=== PATIENT | female | born 1990 | race African-American/Black ===

== ENCOUNTER 2021-08-29 11:32 | Day surgery (SDC) | payer MEDICAID, OTHER ==
[2021-08-29 12:00] VITALS: BMI 31.9
[2021-08-29] MEDS ORDERED: hydrALAZINE 20 MG/ML VIAL SLOW IVP PRN (13:06)
== END 2021-08-29 14:42 | disposition home or self-care (01) ==
LOC: CSHLD/OP 11:32
PROVIDERS: ATTEND Family Medicine
DX: O99.891 Other specified diseases and conditions complicating pregnancy (principal); R10.30 Lower abdominal pain, unspecified; M54.50 Low back pain, unspecified; O34.211 Maternal care for low transverse scar from previous cesarean delivery; O99.513 Diseases of the respiratory system complicating pregnancy, third trimester; J45.909 Unspecified asthma, uncomplicated; Z3A.35 35 weeks gestation of pregnancy
CPT/HCPCS: 99282

== ENCOUNTER 2021-09-04 14:21 | Day surgery (SDC) | payer OTHER ==
[2021-09-04 15:00] VITALS: BMI 30.7
[2021-09-04 15:29] LABS: Fetal Membranes Rupture No Membranes Rupture (No Rupture)
[2021-09-04] MEDS ORDERED: hydrALAZINE 20 MG/ML VIAL SLOW IVP PRN (15:58)
== END 2021-09-04 16:02 | disposition home health service (06) ==
LOC: CSHLD/OP 14:21
PROVIDERS: ATTEND Family Medicine
DX: O99.891 Other specified diseases and conditions complicating pregnancy (principal); N89.8 Other specified noninflammatory disorders of vagina; O34.219 Maternal care for unspecified type scar from previous cesarean delivery; Z3A.36 36 weeks gestation of pregnancy
CPT/HCPCS: 84112; 99283

== ENCOUNTER 2021-09-19 19:51 | Day surgery (SDC) | payer OTHER ==
[2021-09-19 20:12] VITALS: BMI 32.1
[2021-09-19] MEDS ORDERED: hydrALAZINE 20 MG/ML VIAL SLOW IVP PRN (20:51)
[2021-09-19] MEDS ORDERED: Promethazine HCl 25 MG/ML VIAL IM PRN (21:01)
[2021-09-19] MEDS ORDERED: Morphine 4 MG/ML VIAL IM SCH (21:15)
== END 2021-09-19 21:34 | disposition home or self-care (01) ==
LOC: CSHLD/OP 19:51
PROVIDERS: ATTEND Family Medicine
DX: O47.1 False labor at or after 37 completed weeks of gestation (principal); O34.211 Maternal care for low transverse scar from previous cesarean delivery; Z3A.38 38 weeks gestation of pregnancy; Z79.899 Other long term (current) drug therapy
CPT/HCPCS: 96372; 99282; J2270; J2550

== ENCOUNTER 2021-09-22 08:34 | Outpatient (CLI) | payer OTHER, MEDICAID ==
[2021-09-22 19:08] LABS: SARS-CoV-2 PCR by NAA Not Detected (NotDetected)
== END 2021-09-22 08:35 | disposition home or self-care (01) ==
LOC: CSHLAB 08:34
PROVIDERS: ATTEND Family Medicine
DX: Z20.822 Contact with and (suspected) exposure to COVID-19 (principal)
CPT/HCPCS: U0003; U0005

== ENCOUNTER 2021-09-26 09:01 | Inpatient (IN) | payer MEDICAID, OTHER ==
[2021-09-26 10:25] VITALS: BMI 32.1
[2021-09-26] MEDS ORDERED: Ondansetron PF 4 MG/2 ML Vial IVP PRN ×2 (10:29→13:07)
[2021-09-26] MEDS ORDERED: hydrALAZINE 20 MG/ML VIAL SLOW IVP PRN ×2 (10:29→12:47)
[2021-09-26] MEDS ORDERED: Promethazine HCl 25 MG/ML VIAL IM PRN ×2 (10:29→13:07)
[2021-09-26] MEDS ORDERED: Bicitra 30 ML UDCUP PO PRN (10:29)
[2021-09-26] MEDS ORDERED: Famotidine/PF 20 mg/2ml Vial SLOW IVP PRN (10:29)
[2021-09-26] MEDS ORDERED: Lactated Ringer's 1,000 ML IV SCH (10:30)
[2021-09-26] MEDS ORDERED: ceFAZolin 2 GM/Dextrose 50 ML 2 GM in Premix Bag 1 BAG IVPB SCH (10:30)
[2021-09-26 11:09] LABS: Hemoglobin 10.6 g/dL (12.0-15.5); Mean Corpuscular HGB CONC 32.4 g/dL (32.0-36.0); Mean Corpuscular Hemoglobin 26.2 pg (27.0-33.0); Mean Corpuscular Volume 80.7 fl (81.6-98.3); Mean Platelet Volume 12.8 fl (7.4-10.4); Platelet Count 181 10x3/uL (150-450); RBC Distribution Width 14.7 % (11.5-14.5); Red Blood Cell (RBC) Count 4.05 10x6/uL (3.90-5.03); White Blood Cell (WBC) Count 9.7 10x3/uL (3.5-10.5)
[2021-09-26] MEDS ORDERED: Misoprostol 200 MCG TAB ONE (11:27)
[2021-09-26] MEDS ORDERED: Methylergonovine 0.2 MG/ML VIAL ONE (11:28)
[2021-09-26] MEDS ORDERED: Tranexamic Acid 1,000 MG/10 ML VIAL ONE (11:28)
[2021-09-26] MEDS ORDERED: Phenylephrine 10 MG/ML VIAL ONE (11:36)
[2021-09-26] MEDS ORDERED: Oxytocin 10 UNITS/ML VIAL ONE ×2 (11:36→12:35)
[2021-09-26] MEDS ORDERED: PHENYLEPHRINE-NS 100 MCG/ML 10 ML SYRINGE ONE (11:36)
[2021-09-26] MEDS ORDERED: Morphine PF 10 MG/10 ML VIAL ONE (11:36)
[2021-09-26 11:43] LABS: Hep B Surf Ag Non-Reactive S/CO (NonReactive); Syphilis Antibody Nonreactive (Nonreactive); Syphilis Antibody Index 0.04 S/CO (<1.00 Non-Reactive)
[2021-09-26] MEDS ORDERED: Acetaminophen 325 MG TAB PO PRN (12:47)
[2021-09-26] MEDS ORDERED: Boostrix 0.5 ML (Tdap) VIAL IM ONE (12:47)
[2021-09-26] MEDS ORDERED: Methylergonovine 0.2 MG/ML VIAL IM PRN (12:47)
[2021-09-26] MEDS ORDERED: Misoprostol 200 MCG TAB PR PRN (12:47)
[2021-09-26] MEDS ORDERED: Simethicone Chewable 80 MG TAB PO PRN (12:47)
[2021-09-26] MEDS ORDERED: diphenhydrAMINE 25 MG CAP PO PRN (12:47)
[2021-09-26] MEDS ORDERED: Zolpidem Tartrate 5 MG TAB PO PRN (12:47)
[2021-09-26] MEDS ORDERED: HYDROcodone/Acetaminophen 5/325 mg Tablet PO PRN (12:47)
[2021-09-26] MEDS ORDERED: NS w/ Oxytocin 30 units 500 ML IV SCH (13:00)
[2021-09-26] MEDS ORDERED: Hydrocerin (Eucerin) Cream 120 gm Jar TOP PRN (13:07)
[2021-09-26] MEDS ORDERED: Ketorolac Tromethamine 30 MG/ML VIAL ONE (13:07)
[2021-09-26] MEDS ORDERED: Naloxone HCl 0.4 mg/ml Vial IVP PRN ×2 (13:07)
[2021-09-26] MEDS ORDERED: Promethazine HCl 25 MG SUPP PR PRN (13:07)
[2021-09-26] MEDS ORDERED: Fentanyl 100 MCG/2 ML VIAL SLOW IVP PRN (13:07)
[2021-09-26] MEDS ORDERED: Naloxone HCl 0.4 mg/ml Vial IV PRN (13:07)
[2021-09-26] MEDS ORDERED: Ondansetron HCl/PF 4 MG/2 ML Vial IVP PRN (13:07)
[2021-09-26] MEDS ORDERED: HYDROmorphone 2 MG/ML VIAL SLOW IVP PRN (13:07)
[2021-09-26] MEDS ORDERED: Meperidine HCl/PF 25 MG/ML VIAL SLOW IVP PRN (13:07)
[2021-09-26] MEDS ORDERED: Communication Order-Pharmacy FS SCH (13:15)
[2021-09-26] MEDS ORDERED: Ketorolac Tromethamine 30 MG/ML VIAL IVP SCH (13:15)
[2021-09-26] MEDS ORDERED: Ibuprofen 800 MG TAB PO SCH (14:00)
[2021-09-26] MEDS: diphenhydrAMINE 50 MG/ML VIAL IVP PRN ×2 (14:47→18:20)
[2021-09-26] MEDS: Ferrous Sulfate 325 MG TAB PO SCH (21:51)
[2021-09-26] MEDS: Docusate 100 MG CAP PO SCH (21:52)
[2021-09-27] MEDS: Ketorolac Tromethamine 30 MG/ML VIAL IVP PRN ×2 (01:29→08:56)
[2021-09-27 06:51] LABS: Hemoglobin 9.1 g/dL (12.0-15.5); Mean Corpuscular HGB CONC 32.4 g/dL (32.0-36.0); Mean Corpuscular Hemoglobin 26.8 pg (27.0-33.0); Mean Corpuscular Volume 82.6 fl (81.6-98.3); Mean Platelet Volume 11.8 fl (7.4-10.4); Platelet Count 156 10x3/uL (150-450); RBC Distribution Width 14.7 % (11.5-14.5); White Blood Cell (WBC) Count 9.7 10x3/uL (3.5-10.5)
[2021-09-27] MEDS: Ferrous Sulfate 325 MG TAB PO SCH ×2 (08:53→22:06)
[2021-09-27] MEDS: Docusate 100 MG CAP PO SCH ×2 (08:53→22:06)
[2021-09-27] MEDS: AMOXicillin 250 MG CAP PO SCH ×2 (08:54→22:06)
[2021-09-27] MEDS ORDERED: HYDROcodone/Acetaminophen 5/325 mg Tablet PO PRN (13:05)
[2021-09-27] MEDS: HYDROcodone/Acetaminophen 5/325 mg Tablet PO PRN ×2 (13:35→19:55)
[2021-09-27] MEDS ORDERED: Ibuprofen 800 MG TAB PO PRN (14:00)
[2021-09-28] MEDS: HYDROcodone/Acetaminophen 5/325 mg Tablet PO PRN (05:56)
[2021-09-28] MEDS ORDERED: Ibuprofen 800 MG TAB PO SCH (07:30)
[2021-09-28] MEDS: Docusate 100 MG CAP PO SCH (08:03)
[2021-09-28] MEDS: Ferrous Sulfate 325 MG TAB PO SCH (08:03)
[2021-09-28] MEDS: AMOXicillin 250 MG CAP PO SCH (08:03)
[2021-09-28 11:58] VITALS: BP 128/90; TEMP 98.1
== END 2021-09-28 13:55 | disposition home or self-care (01) | DRG 788 ==
LOC: CSHLD 09:01 → CSHPP 15:10
PROVIDERS: ADMIT Family Medicine; ATTEND Family Medicine
PROC: 10D00Z1 Extraction of Products of Conception, Low, Open Approach (ICD-10-PCS; principal; 2021-09-26)
DX: O34.211 Maternal care for low transverse scar from previous cesarean delivery (principal); Z3A.39 39 weeks gestation of pregnancy; Z37.0 Single live birth; Z20.822 Contact with and (suspected) exposure to COVID-19
CPT/HCPCS: 36415; 51702; 85027; 86780; 86850; 86900; 86901; 87340; J0690; J1200; J1885; J2274; J2370; J2405; J2590; S0028

== ENCOUNTER 2023-06-10 11:27 | Emergency (ER) | payer OTHER | END 2023-06-10 12:40 | disposition home or self-care (01) | LOC: CSHERS 11:27 | DX: G62.9 Polyneuropathy, unspecified (principal); I10 Essential (primary) hypertension | CPT/HCPCS: 36416; 99283 ==

== ENCOUNTER 2023-08-03 10:49 | Emergency (ER) | payer OTHER ==
[2023-08-03] MEDS ORDERED: traMADol HCl 50 MG TAB ONE (11:16)
== END 2023-08-03 12:17 | disposition home or self-care (01) ==
LOC: CSHERS 10:49
DX: S60.211A Contusion of right wrist, initial encounter (principal); I10 Essential (primary) hypertension; Y04.8XXA Assault by other bodily force, initial encounter

== ENCOUNTER 2024-10-05 11:08 | Emergency (ER) | payer OTHER, SELFPAY ==
[2024-10-05] MEDS ORDERED: Ketorolac Tromethamine 30 MG (1 mL) VIAL ONE (12:08)
[2024-10-05] MEDS ORDERED: Dexamethasone 10 MG/ML VIAL ONE (12:08)
== END 2024-10-05 12:47 | disposition home or self-care (01) ==
LOC: CSHERS 11:08
DX: J06.9 Acute upper respiratory infection, unspecified (principal); I10 Essential (primary) hypertension; J45.909 Unspecified asthma, uncomplicated; Z79.51 Long term (current) use of inhaled steroids
CPT/HCPCS: 96372; J1100; J1885

== ENCOUNTER 2025-06-08 22:33 | Emergency (ER) | payer OTHER ==
[2025-06-09] MEDS ORDERED: Mag-Al 1200 mg/1200 mg/30 ML UDCUP ONE (00:04)
[2025-06-09] MEDS ORDERED: Lidocaine Viscous Sol 2% 15 ml UD Cup ONE (00:04)
[2025-06-09] MEDS ORDERED: diphenhydrAMINE 12.5 MG/5 ML UDCUP ONE (00:04)
[2025-06-09] MEDS ORDERED: Acetaminophen 500 MG TAB ONE (00:25)
== END 2025-06-09 00:42 | disposition home or self-care (01) ==
LOC: CSHERS 22:33
DX: J20.9 Acute bronchitis, unspecified (principal); J01.00 Acute maxillary sinusitis, unspecified
CPT/HCPCS: 87081; 87428; 87430; 99283; Q0162; Q0163